=== PATIENT | male | born 1955 | race Caucasian/White ===

== ENCOUNTER 2017-07-27 10:25 | Outpatient (CLI) | payer BC ==
[2017-07-27] MEDS ORDERED: Iopamidol 370 76% 100 ML VIAL ONE (12:23)
--- NOTE | 2017-07-27 13:04 | CT ---
CT ABDOMEN WITH AND WITHOUT CONTRAST CT PELVIS WITH CONTRAST: DATE: 07-27-17 History: 61-year-old male with liver mass found on ultrasound at [facility]. Technique: IV contrast: 100 ml Isovue 370 Oral contrast: Redicat 2 Pre contrast scan of abdomen. Arterial phase and venous phase scans of abdomen and pelvis. Coronal reconstructions of venous phase scan. FINDINGS: Occupying a large portion of the right lobe of the liver, mostly hepatic segments 6 and 7, there is a large, infiltrative mass with heterogeneously low attenuation, and mild, heterogeneous enhancement, with irregular margins. It measures approximately 11.5 x 11 x 7.5 cm. This is in a background of diff usely low hepatic attenuation on the noncontrast scan representing fatty liver. There are no renal ca lculi. The abdominal aorta, adrenals, pancreas, and spleen are normal. There are several nonspecific mildly enlarged deedee hepatis lymph nodes and paraaortic retroperitoneal lymph nodes. There is an lesli roximately 1.5 cm cyst at the right renal lower pole. There is a 1 cm cyst also in the right renal lo wer pole. Otherwise, the kidneys are normal. No signs of colonic diverticulitis. Normal urinary bladd er. No ascites or pneumoperitoneum. Normal appendix. No small bowel dilation. Lung bases are grossly clear. IMPRESSION: 1. Large infiltrative mass in the right lobe of the liver is evidence for hepatocellular carcinoma un til proven otherwise. 2. Nonspecific mildly enlarged deedee hepatis and retroperitoneal lymph nodes. 3. Hepatic steatosis. POS: [facility]
== END 2017-07-27 10:26 | disposition home or self-care (01) ==
LOC: CT 10:25
PROVIDERS: ATTEND Specialist
DX: R16.0 Hepatomegaly, not elsewhere classified (principal); K76.0 Fatty (change of) liver, not elsewhere classified
CPT/HCPCS: 72193; 74170

== ENCOUNTER 2017-09-06 07:17 | Day surgery (SDC) | payer BC ==
[2017-09-05 14:50] VITALS: BMI 30.4
[2017-09-06] MEDS ORDERED: CEFAZOLIN/Water 2 GM/20 ML SYRINGE ONE (08:37)
[2017-09-06] MEDS ORDERED: Lidocaine 2% w/Epinephrine 1:200K 20 ML VIAL ONE (09:02)
[2017-09-06] MEDS ORDERED: Bupivacaine 0.25% HCL 30 ML VIAL ONE (09:02)
[2017-09-06] MEDS ORDERED: Fentanyl 100 MCG/2 ML VIAL ONE ×2 (09:08)
[2017-09-06] MEDS ORDERED: Propofol 500 MG/50 ML VIAL ONE (09:18)
--- NOTE | 2017-09-06 10:29 | OP ---
DATE OF PROCEDURE: 09/06/2017 PREOPERATIVE DIAGNOSIS: Cholangiocarcinoma, status post exploration by Dr. 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 POSTOPERATIVE DIAGNOSIS: Cholangiocarcinoma, status post exploration by Dr. Serjio Helton, biliary isai geon, unable to resect it due to portal vein invasion. PROCEDURE: Right subclavian vein standard MediPort. SURGEON: Dr. Kemal Marte ANESTHESIA: Sedation, local 0.25% Marcaine, 30 mL, mixed with 1% Xylocaine with epinephrine, 30 mL. Fluoroscopy used. PROCEDURE IN DETAIL: The patient was taken to the operating room where under intravenous sedation, n edwin and chest were clipped of hair, prepared with ChloraPrep, draped in routine fashion. Local anest hetic infiltrated into skin and subcutaneous tissue about the operative site. Infraclavicular approa ch right made and subclavian vein cannulated. J-wire threaded, trocar catheter removed. Skin incise d and enlarged sharply carried down through the skin and subcutaneous tissue. Subcutaneous pocket di ssected free, gaining hemostasis with cautery and dilator and pull-away sheath placed over the J-wire into the superior vena cava and dilator and J-wire removed. Catheter placed with pull-away sheath a nd the pull-away sheath was then removed and under fluoroscopic visualization, the catheter tip place d in optimal position in the superior vena cava and tailored to length, connected to the MediPort. M ediPort placed in the subcutaneous pocket and secured with 2 interrupted sutures of 3-0 Prolene. Sub cutaneous tissues approximated with 3-0 Monocryl, skin with subdermal 4-0 Monocryl. Final fluoroscop ic images revealed good MediPort catheter placement. MediPort accessed with a Langley needle, aspirate d blood, and flushed with heparinized saline solution. The patient tolerated the procedure well.
--- NOTE | 2017-09-06 12:13 | RAD ---
CHEST 1 VIEW: HISTORY: MediPort placement. FINDINGS: No comparison. Cardiac silhouette and pulmonary vasculature are unremarkable. Mediastinum is midlin e. The tip of a right subclavian MediPort projects over the superior vena cava. No evidence of pne umothorax. IMPRESSION: Right subclavian MediPort is in good radiographic position. POS: [facility]
[2017-09-06] MEDS ORDERED: Lidocaine 1% PF 5 ML VIAL ONE (14:47)
[2017-09-06] MEDS ORDERED: Propofol 200 MG/20 ML VIAL ONE (14:47)
== END 2017-09-06 11:35 | disposition home or self-care (01) ==
LOC: SDC 07:17
PROVIDERS: ATTEND Specialist
PROC: 05H533Z Insertion of Infusion Device into Right Subclavian Vein, Percutaneous Approach (ICD-10-PCS; principal; 2017-09-06)
DX: C22.1 Intrahepatic bile duct carcinoma (principal)
CPT/HCPCS: 71045; C1788; J1642; J2001; J2704; J3010; S0020

== ENCOUNTER 2017-11-09 08:18 | Day surgery (SDC) | payer BC ==
[2017-11-09] MEDS ORDERED: Sodium Chloride 0.9% 20 ML ONE (08:34)
[2017-11-09] MEDS ORDERED: Acetaminophen 500 MG TAB PO SCH (09:15)
[2017-11-09] MEDS ORDERED: diphenhydrAMINE 25 MG CAP PO SCH (09:15)
[2017-11-09 15:26] VITALS: BP 137/71; TEMP 98
[2017-11-09 16:14] LABS: #Basophils 0.1 thou/uL (0.0-0.2); #Lymphocytes 1.2 thou/uL (1.20-3.40); #Monocytes 0.2 thou/uL (0.11-0.59); #Neutrophils 2.5 thou/uL (1.40-6.50); %Basophils 1.7 % (0.0-1.0); %Eosinophils 1.1 % (0.0-10.0); %Lymphocytes 29.5 % (21.0-51.0); %Monocytes 5.4 % (0.0-10.0); %Neutrophils 62.3 % (42.0-75.0); Hemoglobin 10.4 g/dL (14.0-18.0); MDiff Complete? YES; Mean Corpuscular HGB CONC 35.1 g/dL (32.0-36.0); Mean Corpuscular Hemoglobin 32.3 pg (27.0-31.0); PLT Morphology Comment Appears Decreased; Platelet Count 82 thou/uL (130-400); Polychromasia SLIGHT = 2-3 cells (100X) (0-2/hpf); RBC Distribution Width 13.4 % (11.5-14.5); Red Blood Cell (RBC) Count 3.23 mill/uL (4.70-6.10)
== END 2017-11-09 15:32 | disposition home or self-care (01) ==
LOC: ONC/OP 08:18
PROVIDERS: ATTEND Internal Medicine Hematology & Oncology
PROC: 30233N1 Transfusion of Nonautologous Red Blood Cells into Peripheral Vein, Percutaneous Approach (ICD-10-PCS; principal; 2017-11-09)
DX: C22.1 Intrahepatic bile duct carcinoma (principal); D63.0 Anemia in neoplastic disease; D69.6 Thrombocytopenia, unspecified; R03.0 Elevated blood-pressure reading, without diagnosis of hypertension; G47.33 Obstructive sleep apnea (adult) (pediatric); E78.00 Pure hypercholesterolemia, unspecified
CPT/HCPCS: 36430; 85025; 86850; 86900; 86901; A4216; J1642; P9016

== ENCOUNTER 2017-11-21 07:25 | Outpatient (CLI) | payer BC ==
[2017-11-21] MEDS ORDERED: Iopamidol 370 76% 100 ML VIAL ONE (16:09)
== END 2017-11-21 07:26 | disposition home or self-care (01) ==
LOC: BICCT 07:25
PROVIDERS: ATTEND Internal Medicine Hematology & Oncology
DX: C22.1 Intrahepatic bile duct carcinoma (principal); R16.1 Splenomegaly, not elsewhere classified; K76.89 Other specified diseases of liver
CPT/HCPCS: 74177

== ENCOUNTER 2017-11-22 14:59 | Day surgery (SDC) | payer BC ==
[2017-11-22] MEDS ORDERED: Acetaminophen 500 MG TAB PO SCH (15:45)
[2017-11-22] MEDS ORDERED: diphenhydrAMINE 25 MG CAP PO SCH (15:45)
[2017-11-22] MEDS ORDERED: Sodium Chloride 0.9% 30 ML ONE (16:17)
[2017-11-22 18:21] VITALS: BP 118/73; TEMP 98
== END 2017-11-22 18:43 | disposition home or self-care (01) ==
LOC: ONC/OP 14:59
PROVIDERS: ATTEND Internal Medicine Medical Oncology
PROC: 30233N1 Transfusion of Nonautologous Red Blood Cells into Peripheral Vein, Percutaneous Approach (ICD-10-PCS; principal; 2017-11-22)
DX: D64.9 Anemia, unspecified (principal); I10 Essential (primary) hypertension; Z79.82 Long term (current) use of aspirin; Z79.899 Other long term (current) drug therapy
CPT/HCPCS: 36430; 86850; 86900; 86901; A4216; J1642; P9016

== ENCOUNTER → 2017-12-05 | Day surgery (SDC) | payer BC ==
[~2017-12-05] MED LIST: Acetaminophen 500 MG TAB ONE; Acetaminophen 500 MG TAB PO SCH; diphenhydrAMINE 25 MG CAP ONE; diphenhydrAMINE 25 MG CAP PO SCH
[2017-12-05 15:03] VITALS: BP 110/70; TEMP 97.8
[2017-12-05 16:02] LABS: Hemoglobin 7.3 g/dL (14.0-18.0); Mean Corpuscular HGB CONC 33.9 g/dL (32.0-36.0); Mean Corpuscular Hemoglobin 31.6 pg (27.0-31.0); Mean Corpuscular Volume 93.2 fl (80.0-94.0); Mean Platelet Volume 7.2 fL (7.4-10.4); Platelet Count 19 thou/uL (130-400); Red Blood Cell (RBC) Count 2.32 mill/uL (4.70-6.10); White Blood Cell (WBC) Count 4.1 thou/uL (4.8-10.8)
[2017-12-05 16:31] LABS: Band 16 % (5-11); Lymphocytes 55 % (21-51); MDiff Complete? YES; Metamyelocyte 1 % (0-0); Monocytes 2 % (0-10); Neutrophil 26 % (42-75); PLT Morphology Comment Appears Decreased
== END ==
LOC: ONC/OP 10:35
PROVIDERS: ATTEND Internal Medicine Hematology & Oncology
PROC: 30233R1 Transfusion of Nonautologous Platelets into Peripheral Vein, Percutaneous Approach (ICD-10-PCS; principal; 2017-12-05)
DX: D64.9 Anemia, unspecified (principal); D69.6 Thrombocytopenia, unspecified; G47.33 Obstructive sleep apnea (adult) (pediatric)
CPT/HCPCS: 36430; 85025; 86900; 86901; J1642; P9035

== ENCOUNTER 2017-12-13 08:53 | Day surgery (SDC) | payer BC ==
[2017-12-13] MEDS ORDERED: Acetaminophen 500 MG TAB PO SCH (09:15)
[2017-12-13] MEDS ORDERED: diphenhydrAMINE 25 MG CAP PO SCH (09:15)
[2017-12-13 11:50] LABS: Hemoglobin 8.8 g/dL (14.0-18.0)
[2017-12-13] MEDS ORDERED: Sodium Chloride 0.9% 30 ML ONE (15:41)
[2017-12-13 16:28] VITALS: TEMP 97.7
[2017-12-13 16:30] VITALS: BP 120/59
== END 2017-12-13 16:30 | disposition home or self-care (01) ==
LOC: ONC/OP 08:53
PROVIDERS: ATTEND Internal Medicine Hematology & Oncology
PROC: 30233N1 Transfusion of Nonautologous Red Blood Cells into Peripheral Vein, Percutaneous Approach (ICD-10-PCS; principal; 2017-12-13)
DX: C22.1 Intrahepatic bile duct carcinoma (principal); D63.0 Anemia in neoplastic disease; D69.6 Thrombocytopenia, unspecified; G47.33 Obstructive sleep apnea (adult) (pediatric); I10 Essential (primary) hypertension; E78.00 Pure hypercholesterolemia, unspecified; Z79.82 Long term (current) use of aspirin; Z79.899 Other long term (current) drug therapy
CPT/HCPCS: 36430; 85014; 85018; 86850; 86900; 86901; A4216; J1642; P9016